=== PATIENT | female | born 1945 | race Caucasian/White ===

== ENCOUNTER 2017-05-28 20:30 | Emergency (ER) | payer OTHER, BC ==
[~2017-05-28] VITALS: Ht 157.5 cm; Wt 105.4 kg
[2017-05-28 20:57] LABS: EOSINOPHIL (%) 1.3 % (0-5); EOSINOPHIL COUNT 0.2 K/uL (0-0.3); HEMATOCRIT 41.9 % (36.0-46.0); IMMATURE GRANULOCYTE (%) 0.9 % (0.0-0.7); IMMATURE GRANULOCYTE COUNT 0.1 K/uL; INSTRUMENT ABS NEUTROPHIL CT 11.1 K/uL; LYMPHOCYTE COUNT 1.5 K/uL (1.0-2.8); MCH 30.2 PG (29.0-34.0); MCHC 33.2 G/DL (30.0-36.0); MCV 90.9 FL (83-99); MEAN PLAT.VOLUME 8.6 uM^3 (9.5-12.4); MONOCYTE (%) 7.4 % (3-12); NEUTROPHIL (%) 79.2 % (45-76); NEUTROPHIL COUNT 11.1 K/uL (1.8-6.4); PLATELET COUNT 333 K/uL (156-360); RBC DIS.WIDTH-CV 12.5 % (11.8-14.6); RBC DIS.WIDTH-SD 41.5 % (39-53); RED BLOOD COUNT 4.61 M/uL (3.80-5.20)
[2017-05-28 21:13] LABS: CHLORIDE 104 mEq/L (99-109); POTASSIUM 4.4 mEq/L (3.7-5.4); SODIUM 140 mEq/L (136-147)
[2017-05-28 21:15] LABS: GLUCOSE 119 mg/dL (70-99)
[2017-05-28 21:16] LABS: ANION GAP 8 MEQ/L (2-14)
[2017-05-28 21:19] LABS: GFR ESTIMATE (CALCULATED) > 59 mL/min/
[2017-05-28 21:20] LABS: UREA NITROGEN (BUN) 10 mg/dL (9-23)
[2017-05-28 22:52] LABS: ADD MIUA? YES; BILIRUBIN NEGATIVE; BLOOD NEGATIVE; COLOR AMBER ((YELLOW)); GLUCOSE (STRIP) NEGATIVE; KETONES NEGATIVE; LEUKOCYTES TRACE; NITRITE NEGATIVE; PROTEIN (STRIP) NEGATIVE; SPECIFIC GRAVITY 1.021 (1.000-1.030); UROBILINOGEN 0.2 MG/DL (0.2-1.0)
[2017-05-28 22:57] LABS: BACTERIA NONE SEEN /HPF; EPITHELIAL CELLS RARE /HPF; MUCUS TRACE /LPF; RED BLOOD CELLS 0-5 /HPF (0-5); UCUL ADDED? NO; WHITE BLOOD CELLS 0-5 /HPF (0-5)
[2017-05-29 00:07] LABS: INFLUENZA A VIRAL ANTIGEN NEGATIVE; INFLUENZA B VIRAL ANTIGEN NEGATIVE
[2017-05-29] MEDS ORDERED: DOXYCYCLINE MO100 MG PO (02:07)
[2017-05-29] MEDS ORDERED: VENTOLIN HFA18 GM IH (02:07)
[2017-05-29 02:30] VITALS: BP 140/78
== END 2017-05-29 02:31 | disposition home or self-care (01) ==
LOC: EME 20:30
PROVIDERS: Emergency Medicine
DX: R50.9 Fever, unspecified (principal); R05 Cough; R07.89 Other chest pain
CPT/HCPCS: 71020; 80048; 81003; 83605; 85025; 87502; 94640; 99281; 99285; J2270; J7030